=== PATIENT | male | born 1975 | race Caucasian/White ===

== ENCOUNTER 2016-10-28 19:46 | Emergency (ER) | payer BC ==
[2016-10-28 20:02] VITALS: BP 137/94
[2016-10-28] MEDS ORDERED: Sodium Chloride 0.9% 10 ML Syringe FLUSH PRN (20:03)
[2016-10-28] MEDS ORDERED: Metoclopramide 10 MG/2 ML SDV IVPUSH ONE (20:03)
[2016-10-28] MEDS ORDERED: Ketorolac 30 MG/ML SDV IVPUSH ONE (20:05)
[2016-10-28] MEDS ORDERED: diphenhydrAMINE 50 MG/ML SDV IVPUSH ONE (20:05)
[2016-10-28] MEDS ORDERED: Sodium Chloride 0.9% 2,000 ML IV SCH (20:15)
--- NOTE | 2016-10-28 20:28 | EDM.PDOC ---
ED HPI GENERAL MEDICAL PROBLEM - General Chief Complaint: Exposure to Heat or Cold Stated Complaint: POSSIBLE HEAT STROKE Time Seen by Provider: 10/28/16 19:57 Source of Information: Reports: Patient, Family History Limitations: Reports: No Limitations - History of Present Illness INITIAL COMMENTS - FREE TEXT/NARRATIVE: The patient presents with possible heat stroke. The patient has been out in the heat all weekend for the past 3 days at [facility]. He has a frontal headache, no appetite, fever, chills, cough, chest tightness when taking a deep breath and a little shortness of breath. He could not rope today because he did not feel well. He felt like he had a fever and he has chills. He has some right upper abdominal pain at times. He has no appetite but he has been trying to push the fluids. He has hypothyroidism and HTN. He has no history of surgeries. He has no numbness but he has generalized weakness with the headache. Onset: Gradual Duration: Day(s): (3) Location: Reports: Head Quality: Reports: Ache Severity: Moderate Improves with: Reports: None Worsens with: Reports: None Context: Reports: Activity (Outside at a rodeo for 3 days) Associated Symptoms: Reports: Chest Pain, Cough, Fever/Chills, Headaches, Shortness of Breath, Weakness. Denies: Nausea/Vomiting Headache Pain Score (Numeric/FACES): 9 - Related Data Allergies Allergy/AdvReac Type Severity Reaction Status Date / Time No Known Allergies Allergy Verified 10/28/16 20:03 Home Meds: Home Meds Ciprofloxacin HCl [Cipro] 500 mg PO BID #6 tablet 10/28/16 [Rx] Past Medical History Cardiovascular History: Reports: Hypertension Musculoskeletal History: Reports: Gout - Past Surgical History Other Endocrine Surgeries/Procedures: thyroid issues and is on thyroid medication but unsure which type of d/o he has Other Musculoskeletal Surgeries/Procedures:: right arm fracture, right foot, and right ring finger Social & Family History - Caffeine Use Caffeine Use: Reports: Coffee, Tea - Recreational Drug Use Recreational Drug Use: No ED ROS GENERAL - Review of Systems Review Of Systems: See Below Constitutional: Reports: Fever, Chills, Malaise, Weakness, Fatigue HEENT: Reports: No Symptoms Respiratory: Reports: Shortness of Breath, Wheezing, Cough, Sputum Cardiovascular: Reports: Chest Pain Endocrine: Reports: Fatigue GI/Abdominal: Reports: Abdominal Pain (Right upper abdomen), Anorexia. Denies: Diarrhea, Nausea, Vomiting : Reports: No Symptoms Musculoskeletal: Reports: Other (Generalized muscle aches) ED EXAM, GENERAL - Physical Exam Exam: See Below Exam Limited By: No Limitations General Appearance: Alert, No Apparent Distress Ears: Normal External Exam Nose: Normal Inspection Head: Atraumatic, Normocephalic Neck: Normal Inspection Respiratory/Chest: No Respiratory Distress, Lungs Clear, Normal Breath Sounds Cardiovascular: Regular Rate, Rhythm, No Edema, No Murmur GI/Abdominal: Soft, Non-Tender, No Organomegaly, No Mass Back Exam: Normal Inspection Extremities: Normal Inspection EKG INTERPRETATION EKG Date: 10/28/16 Time: 20:20 Rhythm: Other (sinus tachycardia) Rate (Beats/Min): 106 [place]: Normal P-Wave: Present QRS: Normal ST-T: Normal QT: Normal Course - Vital Signs Last Recorded V/S: Last Vital Signs Temp 100.9 F H 10/28/16 19:56 Pulse 110 H 10/28/16 19:56 Resp 20 10/28/16 19:56 BP 137/94 H 10/28/16 19:56 Pulse Ox 97 10/28/16 19:56 - Orders/Labs/Meds Orders: Active Orders 24 hr Category Date Time Status Cardiac Monitoring [RC] . DIRECTED Care 10/28/16 20:04 Active EKG Documentation Completion [RC] STAT Care 10/28/16 20:04 Active Peripheral IV Care [RC] . DIRECTED Care 10/28/16 20:04 Active Abdomen Ltd [US] Stat Exams 10/28/16 21:08 Taken Chest 1V Frontal [CR] Stat Exams 10/28/16 20:05 Taken Head wo Cont [CT] Stat Exams 10/28/16 20:05 Taken Sodium Chloride 0.9% [Normal Saline] 2,000 ml Med 10/28/16 20:15 Active IV .BOLUS Sodium Chloride 0.9% [Saline Flush] Med 10/28/16 20:03 Active 10 ml FLUSH ASDIRECTED PRN ED Antiemetic Medication Reflex [OM.PC] Stat Oth 10/28/16 20:04 Ordered Peripheral IV Insertion Adult [OM.PC] Stat Oth 10/28/16 20:03 Ordered Medication Orders Sodium Chloride (Normal Saline) 2,000 mls @ 1,000 mls/hr IV .BOLUS LEROY Last Admin: 10/28/16 20:15 Dose: 1,000 mls/hr Sodium Chloride (Saline Flush) 10 ml FLUSH ASDIRECTED PRN PRN Reason: Keep Vein Open Last Admin: 10/28/16 20:15 Dose: 10 ml Labs: Laboratory Tests 10/28/16 10/28/16 10/28/16 Range/Units 20:02 20:02 20:02 WBC 12.45 H (4.23-9.07) K/mm3 RBC 4.50 L (4.63-6.08) M/mm3 Hgb 13.4 L (13.7-17.5) gm/L Hct 39.4 L (40.1-51.0) % MCV 87.6 (79.0-92.2) fl MCH 29.8 (25.7-32.2) pg MCHC 34.0 (32.2-35.5) g/dl RDW Std Deviation 42.5 (35.1-43.9) fL Plt Count 169 (163-337) K/mm3 MPV 11.4 (9.4-12.3) fl Neut % (Auto) 84.3 H (34.0-67.9) % Lymph % (Auto) 8.4 L (21.8-53.1) % [place] % (Auto) 6.2 (5.3-12.2) % Eos % (Auto) 0.7 L (0.8-7.0) Baso % (Auto) 0.2 (0.1-1.2) % Neut # (Auto) 10.49 H (1.78-5.38) K/mm3 Lymph # (Auto) 1.05 L (1.32-3.57) K/mm3 [place] # (Auto) 0.77 (0.30-0.82) K/mm3 Eos # (Auto) 0.09 (0.04-0.54) K/mm3 Baso # (Auto) 0.03 (0.01-0.08) K/mm3 Manual Slide Review Normal smear Sodium 137 (136-145) mEq/L Potassium 3.9 (3.5-5.1) mEq/L Chloride 101 (98-107) mEq/L Carbon Dioxide 26 (21-32) mEq/L Anion Gap 13.9 (5-15) BUN 9 (7-18) mg/dL Creatinine 1.4 H (0.7-1.3) mg/dL Est Cr Clr Drug Dosing 75.44 mL/min Estimated GFR (MDRD) 56 (>60) mL/min BUN/Creatinine Ratio 6.4 L (14-18) Glucose 105 (74-106) mg/dL Calcium 9.3 (8.5-10.1) mg/dL Total Bilirubin 0.9 (0.2-1.0) mg/dL AST 46 H (15-37) U/L ALT 88 H (16-63) U/L Alkaline Phosphatase 128 H (46-116) U/L Creatine Kinase 404 H (39-308) U/L CK-MB (CK-2) 0.8 (0-3.6) ng/ml Troponin I < 0.017 (0.00-0.056) ng/mL Total Protein 8.0 (6.4-8.2) g/dl Albumin 4.6 (3.4-5.0) g/dl Globulin 3.4 gm/dL Albumin/Globulin Ratio 1.4 (1-2) Urine Color (Yellow) Urine Appearance (Clear) Urine pH (5.0-8.0) Ur Specific [place] (1.005-1.030) Urine Protein (Negative) Urine Glucose (UA) (Negative) Urine Ketones (Negative) Urine Occult Blood (Negative) Urine Nitrite (Negative) Urine Bilirubin (Negative) Urine Urobilinogen (0.2-1.0) Ur Leukocyte Esterase (Negative) Urine RBC (0-5) /hpf Urine WBC (0-5) /hpf Urine WBC Clumps (NOT SEEN) /hpf Ur Epithelial Cells (0-5) /hpf Urine Bacteria (FEW) /hpf Urine Mucus (FEW) /hpf Monoscreen Negative (NEGATIVE) 10/28/16 Range/Units 22:46 WBC (4.23-9.07) K/mm3 RBC (4.63-6.08) M/mm3 Hgb (13.7-17.5) gm/L Hct (40.1-51.0) % MCV (79.0-92.2) fl MCH (25.7-32.2) pg MCHC (32.2-35.5) g/dl RDW Std Deviation (35.1-43.9) fL Plt Count (163-337) K/mm3 MPV (9.4-12.3) fl Neut % (Auto) (34.0-67.9) % Lymph % (Auto) (21.8-53.1) % [place] % (Auto) (5.3-12.2) % Eos % (Auto) (0.8-7.0) Baso % (Auto) (0.1-1.2) % Neut # (Auto) (1.78-5.38) K/mm3 Lymph # (Auto) (1.32-3.57) K/mm3 [place] # (Auto) (0.30-0.82) K/mm3 Eos # (Auto) (0.04-0.54) K/mm3 Baso # (Auto) (0.01-0.08) K/mm3 Manual Slide Review Sodium (136-145) mEq/L Potassium (3.5-5.1) mEq/L Chloride (98-107) mEq/L Carbon Dioxide (21-32) mEq/L Anion Gap (5-15) BUN (7-18) mg/dL Creatinine (0.7-1.3) mg/dL Est Cr Clr Drug Dosing mL/min Estimated GFR (MDRD) (>60) mL/min BUN/Creatinine Ratio (14-18) Glucose (74-106) mg/dL Calcium (8.5-10.1) mg/dL Total Bilirubin (0.2-1.0) mg/dL AST (15-37) U/L ALT (16-63) U/L Alkaline Phosphatase (46-116) U/L Creatine Kinase (39-308) U/L CK-MB (CK-2) (0-3.6) ng/ml Troponin I (0.00-0.056) ng/mL Total Protein (6.4-8.2) g/dl Albumin (3.4-5.0) g/dl Globulin gm/dL Albumin/Globulin Ratio (1-2) Urine Color Yellow (Yellow) Urine Appearance Clear (Clear) Urine pH 6.5 (5.0-8.0) Ur Specific [place] 1.020 (1.005-1.030) Urine Protein Negative (Negative) Urine Glucose (UA) Negative (Negative) Urine Ketones Trace H (Negative) Urine Occult Blood Trace-intact H (Negative) Urine Nitrite Negative (Negative) Urine Bilirubin Negative (Negative) Urine Urobilinogen 0.2 (0.2-1.0) Ur Leukocyte Esterase 1+ H (Negative) Urine RBC 0-5 (0-5) /hpf Urine WBC 20-30 H (0-5) /hpf Urine WBC Clumps Rare (NOT SEEN) /hpf Ur Epithelial Cells 0-5 (0-5) /hpf Urine Bacteria Rare (FEW) /hpf Urine Mucus Few (FEW) /hpf Monoscreen (NEGATIVE) Meds: Medications Generic Name Dose Route Start Last Admin Trade Name Freq PRN Reason Stop Dose Admin Sodium Chloride 2,000 mls @ 1,000 mls/hr 10/28/16 20:15 10/28/16 20:15 Normal Saline IV 1,000 mls/hr .BOLUS LEROY Administration Sodium Chloride 10 ml 10/28/16 20:03 10/28/16 20:15 Saline Flush FLUSH 10 ml ASDIRECTED PRN Administration Keep Vein Open Discontinued Medications Generic Name Dose Route Start Last Admin Trade Name Freq PRN Reason Stop Dose Admin Diphenhydramine HCl 50 mg 10/28/16 20:05 10/28/16 20:20 Benadryl IVPUSH 10/28/16 20:06 50 mg ONETIME ONE Administration Sodium Chloride Confirm 10/28/16 22:34 Normal Saline Administered 10/28/16 22:35 Dose 1,000 mls @ as directed .ROUTE .STK-MED ONE Ketorolac Tromethamine 30 mg 10/28/16 20:05 10/28/16 20:16 Toradol IVPUSH 10/28/16 20:06 30 mg ONETIME ONE Administration Metoclopramide HCl 10 mg 10/28/16 20:03 10/28/16 20:18 Reglan IVPUSH 10/28/16 20:04 10 mg ONETIME ONE Administration - Re-Assessments/Exams Free Text/Narrative Re-Assessment/Exam: 10/28/16 20:30 I ordered an IV NS 2L bolus, reglan 10mg IV, toradol 30mg IV, benadryl 50mg IV, labs, EKG, CXR and a head CT. 10/28/16 23:[address] of his head shows nothing acute. His CXR looks good. HIs WBC was elevated at 12.45. His Hgb was 13.4. His creatinine was elevated at 1.4. His AST was elevated at 46. His ALT was elevated at 88. I checked a mono and it was negative. His EKG showed sinus tachycardia with no acute changes. His CK was elevated at 404. His UA showed a UTI with WBCs leukocyte esterase and bacteria. He has no symptoms. I will get him on some cipro for that. He was dehydrated and he had heat exhaustion. 10/28/16 23:44 He had some pain to his RUQ. I ordered an US and that looked good. He feels better now. I will get him on some cipro for a few days and have him rest. Departure - Departure Time of Disposition: 23:45 Disposition: Home, Self-Care 01 Condition: Good Clinical Impression: Dehydration Heat exhaustion Qualifiers: Encounter type: initial encounter Qualified Code(s): T67.5XXA - Heat exhaustion , unspecified, initial encounter Abdominal pain Qualifiers: Abdominal location: right upper quadrant Qualified Code(s): R10.11 - Right upper quadrant pain UTI (urinary tract infection) Qualifiers: Urinary tract infection type: site unspecified Hematuria presence: without hematuria Qualified Code(s): N39.0 - Urinary tract infection, site not specified - Discharge Information Prescriptions: Ciprofloxacin HCl [Cipro] 500 mg PO BID #6 tablet Referrals: Humberto De La Torre Jr, MD [Primary Care Provider] - Forms: ED Department Discharge Additional Instructions: Take the cipro 2 times per day for 3 days. Drink plenty of fluids. Try to drink some with electrolytes such as powerade or gatorade. Rest tomorrow. Stay out of the heat. Please return if you are worse. - My Orders Last 24 Hours: My Active Orders 10/28/16 20:03 Sodium Chloride 0.9% [Saline Flush] 10 ml FLUSH ASDIRECTED PRN Peripheral IV Insertion Adult [OM.PC] Stat 10/28/16 20:04 Cardiac Monitoring [RC] . DIRECTED EKG Documentation Completion [RC] STAT Peripheral IV Care [RC] . DIRECTED ED Antiemetic Medication Reflex [OM.PC] Stat 10/28/16 20:05 Chest 1V Frontal [CR] Stat Head wo Cont [CT] Stat 10/28/16 20:15 Sodium Chloride 0.9% [Normal Saline] 2,000 ml IV .BOLUS 10/28/16 21:08 Abdomen Ltd [US] Stat - Assessment/Plan Last 24 Hours: My Active Orders 10/28/16 20:03 Sodium Chloride 0.9% [Saline Flush] 10 ml FLUSH ASDIRECTED PRN Peripheral IV Insertion Adult [OM.PC] Stat 10/28/16 20:04 Cardiac Monitoring [RC] . DIRECTED EKG Documentation Completion [RC] STAT Peripheral IV Care [RC] . DIRECTED ED Antiemetic Medication Reflex [OM.PC] Stat 10/28/16 20:05 Chest 1V Frontal [CR] Stat Head wo Cont [CT] Stat 10/28/16 20:15 Sodium Chloride 0.9% [Normal Saline] 2,000 ml IV .BOLUS 10/28/16 21:08 Abdomen Ltd [US] Stat
[2016-10-28] MEDS ORDERED: Sodium Chloride 0.9% 1,000 ML ONE (22:34)
--- NOTE | 2016-10-29 09:50 | US ---
Limited abdominal ultrasound: Multiple real-time images were obtained of the upper right abdomen. Comparison: No previous abdominal imaging. Liver is somewhat echogenic. No discrete focal abnormality identified within the liver. Visualized portions of the pancreas appear within normal limits. Gallbladder shows no gallstones. No gallbladder wall thickening or biliary duct dilatation is seen. Right kidney shows no hydronephrosis or mass. Several small renal cysts appear to be present. No larger cyst or solid abnormality is seen. Right kidney measures 11.9 cm in length. Impression: 1. Probable fatty infiltration within the liver. 2. Several small right-sided renal cysts. 3. No additional abnormality is identified on right upper quadrant abdominal ultrasound. Diagnostic code #3 I agree with preliminary report issued by [facility] ([facility] report finalized on 10/28/16, 11:21 PM Central Time)
--- NOTE | 2016-10-29 09:50 | CT ---
Head CT Technique: Multiple axial sections through the brain were obtained. Intravenous contrast was not utilized. Comparison: No previous intracranial imaging. Findings: Ventricles along with basal cisterns and sulci over the convexities are within normal limits. Minimal extra-axial calcification is seen within the right frontal region which is felt to be incidental. No abnormal parenchymal densities are seen. No evidence of intracranial hemorrhage. No midline shift or mass effect is seen. Mild atherosclerotic calcification seen within the vertebral vessel and within the carotid siphon. Bone window settings were reviewed which show minimal mucosal thickening within the anterior right ethmoid sinuses. No acute calvarial abnormality is appreciated. Impression: 1. Incidental findings. Nothing acute is identified on noncontrast head CT exam. Diagnostic code #2 I agree with preliminary report issued by [facility] ([facility] report finalized on 10/28/16, 10:03 PM Central Time)
--- NOTE | 2016-10-29 09:51 | CR ---
Chest: Portable view of the chest was obtained. Comparison: No previous study. Heart size and mediastinum are within normal limits. Lungs are clear. Bony structures are grossly intact. Impression: 1. Nothing acute is identified on portable chest x-ray. Diagnostic code #1
== END 2016-10-29 00:05 | disposition home or self-care (01) ==
LOC: JD.ED 19:46
DX: T67.5XXA Heat exhaustion, unspecified, initial encounter (principal); E86.0 Dehydration; N39.0 Urinary tract infection, site not specified; I10 Essential (primary) hypertension; E03.9 Hypothyroidism, unspecified
CPT/HCPCS: 36415; 70450; 71010; 76705; 80053; 81001; 82550; 82553; 84484; 85025; 86308; 93005; 96361; 96374; 96375; 99285; J1200; J1885; J2765; J7040; J7050; 99284